=== PATIENT | female | born 1980 | race Two or more races ===

== ENCOUNTER 2024-12-26 05:19 | Emergency (ER) | payer BC, OTHER ==
[2024-12-26 05:34] VITALS: BP 131/70; PULSE 101; RESP 18; TEMP 97.9; BMI 33.5
[2024-12-26] MEDS ORDERED: hydrOXYzine PAMOATE 25 MG CAPSULE (FP) PO ONE (05:54)
[2024-12-26] MEDS ORDERED: KETOROLAC TROMETHAMINE 60 MG/2 ML VIAL ONE (05:54)
[2024-12-26] MEDS: KETOROLAC TROMETHAMINE 60 MG/2 ML VIAL IM ONE (05:55)
[2024-12-26] MEDS ORDERED: LIDOCAINE 5% TOPICAL PATCH ONE (05:55)
[2024-12-26] MEDS: hydrOXYzine PAMOATE 50 MG CAPSULE (FP) PO ONE (05:55)
[2024-12-26] MEDS: LIDOCAINE 5% TOPICAL PATCH TP ONE (05:55)
[2024-12-26] MEDS ORDERED: LIDOCAINE PATCH REMOVAL MC SCH (22:00)
== END 2024-12-26 07:14 | disposition home or self-care (01) ==
LOC: FER 05:19
PROC: 3E0233Z Introduction of Anti-inflammatory into Muscle, Percutaneous Approach (ICD-10-PCS; principal; 2024-12-26)
DX: S39.012A Strain of muscle, fascia and tendon of lower back, initial encounter (principal); X50.1XXA Overexertion from prolonged static or awkward postures, initial encounter
CPT/HCPCS: 99284-25